=== PATIENT | female | born 1975 | race Caucasian/White ===

== ENCOUNTER 2018-09-19 03:55 | Emergency (ER) | payer BC ==
--- NOTE | 2018-09-19 05:35 | CRLCR ---
INDICATION: Constipation TECHNIQUE: Abdominal radiograph 2 views COMPARISON: None FINDINGS: Bowel: Large amount of stool is present in the rectal vault. Gas-filled small bowel loops are present in the left flank near the upper limits of normal in size. Soft tissue: No evidence of pneumoperitoneum present. No suspicious calcifications noted. Bone: Unremarkable for age. IMPRESSION: 1. Large amount of stool is present in the rectal vault. Correlation with physical exam recommended to exclude fecal impaction. Dictated by Maxx Valenzuela MD @ 09/19/2018 5:34:16 AM Dictated by: Maxx Valenzuela MD @ 09/19/2018 05:34:24 (Electronically Signed)
[2018-09-19] MEDS ORDERED: ALPRAZolam 0.25 MG Tab PO ONE (05:58)
--- NOTE | 2018-09-19 06:08 | EDM.PDOC ---
<Karson Cortes M - Last Filed: 09/19/18 07:19> ED HPI GENERAL MEDICAL PROBLEM - General Chief Complaint: General Stated Complaint: PAIN IN RECTAL AREA Time Seen by Provider: 09/19/18 05:45 Source of Information: Reports: Patient History Limitations: Reports: No Limitations - History of Present Illness INITIAL COMMENTS - FREE TEXT/NARRATIVE: 43-year-old female recently was diagnosed with perianal cancer and underwent resection at [facility]. She's been having a lot of constipation since the procedure and has not had a bowel movement for 4 days. She feels like there is a large stool that she is unable to pass. She also has pain with trying to pass stool. She also has been having a lot of urinary retention today as well. Back Pain Score (Numeric/FACES): 10 - Related Data Allergies Allergy/AdvReac Type Severity Reaction Status Date / Time ciprofloxacin Allergy Severe Anaphylactic Verified 09/19/18 04:43 Shock ampicillin Allergy Hives Verified 09/19/18 04:43 Iodine and Iodide Containing Allergy Hives Verified 09/19/18 04:43 Produc Penicillins Allergy Hives Verified 09/19/18 04:43 shrimp Allergy Rash Verified 09/19/18 04:43 strawberry Allergy Rash Verified 09/19/18 04:43 Home Meds: Home Meds Acetaminophen 100 mg PO Q6H PRN 09/19/18 [History] Docusate Sodium [Colace] 100 mg PO BID PRN 09/19/18 [History] SUMAtriptan Succinate [Imitrex] 25 mg PO ASDIRECTED PRN 09/19/18 [History] diphenhydrAMINE HCl [Benadryl] 25 mg PO Q4HR PRN 09/19/18 [History] Past Medical History HEENT History: Reports: Allergic Rhinitis Cardiovascular History: Reports: Arrhythmia Gastrointestinal History: Reports: Irritable Bowel Syndrome QUILT STUFFER History: Reports: Musculoskeletal History: Reports: Fracture Neurological History: Reports: Migraines Oncologic (Cancer) History: Reports: Lung, Other (See Below) Other Oncologic History: perianal, two nodules also found in lungs Dermatologic History: Reports: Urticaria - Infectious Disease History Infectious Disease History: Reports: Chicken Pox, Mononucleosis - Past Surgical History HEENT Surgical History: Reports: Adenoidectomy, Tonsillectomy Cardiovascular Surgical History: Reports: Cardiac Ablation GI Surgical History: Reports: Other (See Below) Other GI Surgeries/Procedures: analocopy Musculoskeletal Surgical History: Reports: Other (See Below) Other Musculoskeletal Surgeries/Procedures:: bunyanectomy Oncologic Surgical History: Reports: Other (See Below) Other Oncologic Surgeries/Procedures: perianal cancer removed Social & Family History - Tobacco Use Smoking Status *Q: Never Smoker - Caffeine Use Caffeine Use: Reports: Coffee - Recreational Drug Use Recreational Drug Use: No ED ROS GENERAL - Review of Systems Review Of Systems: See Below Constitutional: Denies: Fever, Chills, Weakness HEENT: Reports: No Symptoms Respiratory: Reports: No Symptoms Cardiovascular: Reports: No Symptoms GI/Abdominal: Reports: Abdominal Pain, Constipation, Distension. Denies: Black Stool, Bloody Stool, Diarrhea, Nausea : Reports: Urinary Retention. Denies: Dysuria, Frequency ED EXAM, GENERAL - Physical Exam Exam: See Below Exam Limited By: No Limitations General Appearance: Alert, Mild Distress Respiratory/Chest: No Respiratory Distress, Lungs Clear, Normal Breath Sounds Cardiovascular: Normal Peripheral Pulses, Regular Rate, Rhythm GI/Abdominal: Normal Bowel Sounds, Soft, Other (I did not see any sort of infection around the anal area. There was some tenderness around the anus.) Rectal (Female) Exam: Normal Rectal Tone Course - Vital Signs Last Recorded V/S: Last Vital Signs Temp 36.9 C 09/19/18 04:13 Pulse 82 09/19/18 04:13 Resp 22 H 09/19/18 04:13 BP 123/61 09/19/18 04:13 Pulse Ox 100 09/19/18 04:13 - Orders/Labs/Meds Orders: Active Orders 24 hr Category Date Time Status Enema [RC] ASDIRECTED Care 09/19/18 05:37 Active Peripheral IV Care [RC] . DIRECTED Care 09/19/18 06:33 Active Urinary Catheter Assessment [RC] ASDIRECTED Care 09/19/18 04:52 Active Urinary Catheter Insertion [Insert Urinary Catheter] [ Care 09/19/18 05:00 Ordered OM.PC] Q24H Peripheral IV Insertion Adult [OM.PC] Urgent Oth 09/19/18 06:33 Ordered Meds: Medications Discontinued Medications Generic Name Dose Route Start Last Admin Trade Name Freq PRN Reason Stop Dose Admin Alprazolam 0.25 mg 09/19/18 05:58 09/19/18 06:11 Xanax PO 09/19/18 05:59 0.25 mg NOW ONE Administration Lidocaine HCl 10 ml 09/19/18 06:59 09/19/18 07:08 Xylocaine 2% Jelly MUCMEM 09/19/18 07:00 10 ml ONETIME ONE Administration Morphine Sulfate 2 mg 09/19/18 06:34 09/19/18 06:48 Morphine IVPUSH 09/19/18 06:35 2 mg ONETIME ONE Administration Morphine Sulfate 4 mg 09/19/18 06:37 09/19/18 06:46 Morphine IVPUSH 09/19/18 06:38 4 mg ONETIME ONE Administration Sodium Chloride 10 ml 09/19/18 06:33 09/19/18 06:46 Saline Flush FLUSH 10 ml ASDIRECTED PRN Administration Keep Vein Open Departure - Departure Disposition: Home, Self-Care 01 Clinical Impression: Constipation - Discharge Information Instructions: Constipation, Adult Referrals: PCP,None [Primary Care Provider] - Forms: ED Department Discharge Additional Instructions: Get a 238 g bottle of MiraLAX powder along with two 1 L bottles of Powerade. Divide the entire bottle of powder between the 2 Powerade containers. Drink one bottle over 1 hour. 2 hours later, drink the entire second bottle. Pickup extra toilet paper on her way home. Increase dietary fiber as discussed. You could look for recipes for power pudding. For the rash, recommend a drill 25 mg 3 times a day along with Zantac 75 mg, 2 tablets twice a day. Contact [facility] surgeons with any ongoing postoperative questions. Return to ER if feeling worse in anyway. <MedinaAdrian T - Last Filed: 09/19/18 20:16> Course - Vital Signs Text/Narrative:: Assumed care of patient from Dr. Cortes at 0739. - Radiology Interpretation Free Text/Narrative:: CT scan of abdomen/pelvis with IV contrast shows no acute intra-abdominal findings. CT Results Date: 09/19/18 - Re-Assessments/Exams Free Text/Narrative Re-Assessment/Exam: I reviewed current status with the patient. She has had slight help from fleets enemas although as I am talking to her now, she is lying on her right side which would limit some of the dependent flow available fluid. She is able to turn onto her left side and we will use a large volume soapsuds enema to get farther into the colon. A total of 2 of these enemas were administered and eventually she had substantial release of stool. She felt very much improved. I recommend that she get a new container of MiraLAX powder, 238 g size. She should get to liter bottles of Powerade and divided the entire amount of MiraLAX powder between the 2 Powerade containers. She should drink one bottle over 1 hour, wait 2 hours, drink the second bottle over 1 hour. I would expect she will have additional significant stool output. We discussed increasing dietary fiber to help maintain regularity. Even getting completely cleaned out today and sticking to an excellent fiber regimen, we will likely take 3 or 4 weeks to rebalance peristalsis in the intestines. Also discussed the use of power putting. She was discharged in improved condition. 09/19/18 20:13 09/19/18 20:15 Departure - Departure Time of Disposition: 09:53 Condition: Good - Discharge Information *PRESCRIPTION DRUG MONITORING PROGRAM REVIEWED*: Not Applicable *COPY OF PRESCRIPTION DRUG MONITORING REPORT IN PATIENT [place]: Not Applicable
[2018-09-19] MEDS ORDERED: Sodium Chloride 0.9% 10 ML Syringe FLUSH PRN (06:33)
[2018-09-19] MEDS ORDERED: Morphine 2 MG/ML Syringe IVPUSH ONE (06:34)
[2018-09-19] MEDS ORDERED: Morphine 4 MG/ML Syringe IVPUSH ONE (06:37)
[2018-09-19] MEDS ORDERED: Lidocaine 2% Jelly 10 ML Urojet MUCMEM ONE (06:59)
== END 2018-09-19 10:13 | disposition home or self-care (01) ==
LOC: JP.ED 03:55
DX: K59.00 Constipation, unspecified (principal); Z88.1 Allergy status to other antibiotic agents; Z88.0 Allergy status to penicillin; Z91.018 Allergy to other foods
CPT/HCPCS: 51702; 51798; 74019; 96374; 99283; A9270; J2270

== ENCOUNTER 2025-01-18 06:28 | Day surgery (SDC) | payer BC ==
[2025-01-18] MEDS: Lactated Ringers 1,000 ML IV SCH (07:08)
[2025-01-18] MEDS ORDERED: Midazolam 1 MG/ML 2 ML SDV ONE (07:22)
[2025-01-18] MEDS ORDERED: fentaNYL 50 MCG/ML SDV ONE (07:23)
[2025-01-18] MEDS ORDERED: Propofol 200 MG/20 ML SDV ONE (07:23)
== END 2025-01-18 09:10 | disposition home or self-care (01) ==
LOC: JP.SDS 06:28
PROVIDERS: ATTEND Surgery
DX: Z12.11 Encounter for screening for malignant neoplasm of colon (principal); Z85.038 Personal history of other malignant neoplasm of large intestine; Z88.8 Allergy status to other drugs, medicaments and biological substances; Z88.1 Allergy status to other antibiotic agents; Z91.041 Radiographic dye allergy status; Z91.013 Allergy to seafood; Z91.018 Allergy to other foods; Z88.2 Allergy status to sulfonamides; Z79.899 Other long term (current) drug therapy
CPT/HCPCS: 45378; J2250; J2704; J3010; J7120